=== PATIENT | female | born 1965 | race American Indian/Alaskan Native ===

== ENCOUNTER 2018-06-01 15:10 | Emergency (ER) | payer MEDICAID, OTHER ==
[2018-06-01 15:10] VITALS: BMI 15.5
[2018-06-01 15:18] VITALS: BP 151/91; PULSE 99; RESP 20; TEMP 98.4; O2SAT 97
--- NOTE | 2018-06-01 17:47 | ED PDOC ---
HPI: Psych/Substance Abuse Time Seen by Provider: 06/01/18 15:20 Chief Complaint (Nursing): Alcohol Ingestion Chief Complaint (Provider): Alcohol Ingestion History Per: Patient History/Exam Limitations: no limitations Onset/Duration Of Symptoms: Days (x5 months ago) Additional Complaint(s): Lorin Padilla is a 53 year old female with a past medical history of HTN, who was brought by EMS to the emergency department complaining of generalized weakness, onset x5 months. Patient did admit to drinking alcohol in the morning. She states that she was admitted to [facility] x1 month ago for colitis. Patient reports her abdominal pain and diarrhea have resolved. She denies experiencing any chest pain, shortness of breath, melena, blood per rectum, hematochezia, palpitations, SI, HI, hallucinations or depression. PMD: No provider Past Medical History Reviewed: Historical Data, Nursing Documentation, Vital Signs Vital Signs: Last Vital Signs Temp 98.4 F 06/01/18 15:17 Pulse 99 H 06/01/18 15:17 Resp 20 06/01/18 15:17 BP 151/91 H 06/01/18 15:17 Pulse Ox 97 06/01/18 15:17 - Medical History PMH: Anxiety, Bipolar Disorder, Bronchitis, COPD, Depression, Emphysema, Fractures (left wrist), HIV (?), HTN, Personality Disorder, Pneumonia, Seizures Denies: Chronic Kidney Disease, Sexually Transmitted Disease - Surgical History Surgical History: No Surg Hx - Family History Family History: States: Unknown Family Hx - Immunization History Hx Tetanus Toxoid Vaccination: No Hx Influenza Vaccination: No Hx Pneumococcal Vaccination: No - Home Medications Home Medications: Ambulatory Orders Medication Instructions Recorded Ciprofloxacin HCl [Cipro] 500 mg PO BID #9 tablet 05/21/18 Metronidazole [Flagyl] 500 mg PO Q8 #13 tablet 05/21/18 RX: Folic Acid 1 mg PO DAILY #30 tab 05/21/18 RX: Multivitamins [Hexavitamin] 1 tab PO DAILY #30 tab 05/21/18 RX: Thiamine [Vitamin B1 Tab] 100 mg PO DAILY #30 tab 05/21/18 RX: amLODIPine [Norvasc] 10 mg PO DAILY #30 tab 05/21/18 RX: cloNIDine [Catapres] 0.2 mg PO Q8 #90 tab 05/21/18 - Allergies Allergies/Adverse Reactions: Allergies Allergy/AdvReac Type Severity Reaction Status Date / Time aspirin Allergy ANAPHYLAXIS Verified 06/01/18 15:19 ibuprofen [From Motrin] Allergy SWELLING Verified 06/01/18 15:19 Tomato Allergy Intermediate VOMITING Uncoded 06/01/18 15:19 Review of Systems ROS Statement: Except As Marked, All Systems Reviewed And Found Negative Constitutional: Positive for: Weakness Cardiovascular: Negative for: Chest Pain, Palpitations Respiratory: Negative for: Shortness of Breath Gastrointestinal: Negative for: Melena, Hematochezia, Hematemesis, Other (blood per rectum) Psych: Negative for: Depression, Suicidal ideation (homicideal ideation or hallucinations) Physical Exam - Reviewed Nursing Documentation Reviewed: Yes Vital Signs Reviewed: Yes - Physical Exam Appears: Positive for: Well, No Acute Distress Head Exam: Positive for: ATRAUMATIC, NORMOCEPHALIC Skin: Positive for: Normal Color, Warm, Dry Eye Exam: Positive for: Normal appearance, EOMI, PERRL ENT: Positive for: Normal ENT Inspection. Negative for: Other (alcohol in breath) Neck: Positive for: Normal, Painless ROM, Supple Cardiovascular/Chest: Positive for: Regular Rate, Rhythm Respiratory: Positive for: Normal Breath Sounds. Negative for: Respiratory Distress Gastrointestinal/Abdominal: Positive for: Normal Exam, Bowel Sounds, Soft. Negative for: Tenderness Back: Positive for: Normal Inspection. Negative for: L CVA Tenderness, R CVA Tenderness Extremity: Positive for: Normal ROM. Negative for: Tenderness, Deformity, Swelling Neurologic/Psych: Positive for: Alert, Oriented (x3), Gait (steady). Negative for: Other (slurred speech) - ECG O2 Sat by Pulse Oximetry: 97 (RA) Pulse Ox Interpretation: Normal Medical Decision Making Medical Decision Making: Initial Time: 15:20 Initial plan: --Glucose (POC) Provider initially patient that they will proceed with a head CT, blood work, fluids, however, patient eventually refused blood work and head CT. Patient was originally placed in Psychological room but did not want to be there so was moved to room 13 in the ED. Patient still refused to be seen. Leaving Against Medical Advice (AMA): This patient is choosing to leave against medical advice. I have personally explained to the pt that choosing to do so may result in permanent bodily harm or . I have discussed at great length that without further evaluation and monitoring there may be unforeseen circumstances and/or deterioration causing permanent bodily harm or as a result of their choice. The pt verbalized these risks back to the physician in laymans terms. The pt is alert, oriented, and shows the mental capacity to make clear decisions regarding the pts health care at this time. The pt continues to wish to leave against medical advice. In light of the pts decision to leave AMA, follow-up has been arranged and the pt is aware of the importance of following up as instructed. The pt has been advised that they should return to the ED immediately if they change their mind at any time, or if their condition begins to change or worsen in any way. Scribe Attestation: Documented by Bryon Moss, acting as a scribe for Uziel Stokes Provider Scribe Attestation: All medical record entries made by the Scribe were at my direction and personally dictated by me. I have reviewed the chart and agree that the record accurately reflects my personal performance of the history, physical exam, medical decision making, and the department course for this patient. I have also personally directed, reviewed, and agree with the discharge instructions and disposition. Disposition - Clinical Impression Clinical Impression: Weakness, Left against medical advice - Disposition Referrals: [facility] [Outside] Disposition: Against Medical Advice Disposition Time: 16:43 Condition: STABLE Additional Instructions: LORIN PADILLA, thank you for letting us take care of you today. Your provider was Manuelito Rivera III, DO and you were treated for ETOH. The emergency medical care you received today was directed at your acute symptoms. If you were prescribed any medication, please fill it and take as directed. It may take several days for your symptoms to resolve. Return to the Emergency Department if your symptoms worsen, do not improve, or if you have any other problems. Please contact your doctor or call one of the physicians/clinics you have been referred to that are listed on the Patient Visit Information form that is included in your discharge packet. Bring any paperwork you were given at discharge with you along with any medications you are taking to your follow up visit. Our treatment cannot replace ongoing medical care by a primary care provider outside of the emergency department. Thank you for allowing the [facility] team to be part of your care today. If you had an X-Ray or CT scan: A Radiologist will review the ED reading if any change in treatment is needed we will contact you. If you had a blood, urine, or wound culture: It will take several days for the results, if any change in treatment is needed we will contact you. If you had an STI test: It will take 48 hours for the results. Please call after 1 week if you have not heard back. Instructions: Leaving Against Medical Advice, Weakness (ED) Forms: [employer] (Amharic) Print Language: SAMI
== END 2018-06-01 16:40 | disposition left against medical advice (07) ==
LOC: H.ER 15:10
DX: R53.1 Weakness (principal); F31.9 Bipolar disorder, unspecified; Z88.6 Allergy status to analgesic agent

== ENCOUNTER 2018-07-22 13:32 | Emergency (ER) | payer MEDICAID, OTHER ==
[2018-07-22 13:32] VITALS: BMI 15.5
[2018-07-22 13:43] VITALS: BP 141/89; PULSE 86; RESP 22; TEMP 97.7; O2SAT 99
--- NOTE | 2018-07-22 14:22 | ED PDOC ---
HPI: Psych/Substance Abuse Time Seen by Provider: 07/22/18 13:49 Chief Complaint (Nursing): Alcohol Ingestion Chief Complaint (Provider): Alcohol Ingestion ED Caveat: Intoxicated History Per: Family () History/Exam Limitations: intoxication Additional Complaint(s): 53 y/o female presents to the ED with her for head injury s/p fall prior to arrival. Patient was seen awake and alert yelling in triage however on provider examination patient is asleep and uncooperative. Patient does respond to tactile and verbal stimulus but goes back to sleep. Per , patient has been drinking a lot and today she hit her head prompting ED visit. also reports patient has chest pain, shortness of breath, rectal bleeding, and hallucinations. Review of patient chart indicates that patient was admitted to [facility] [place] on 07/17/18 for chest pain and alcohol intoxication and discharged on the then again returned for admission on 07/20/18 for shortness of breath and was discharged the same day. Patient was also seen in the ED yesterday at [facility] [place] ED complaining of chest pain and headache. Past Medical History Reviewed: Historical Data, Nursing Documentation, Vital Signs Vital Signs: Last Vital Signs Temp 97.7 F 07/22/18 13:36 Pulse 86 07/22/18 13:36 Resp 22 07/22/18 13:36 BP 141/89 07/22/18 13:36 Pulse Ox 99 07/22/18 13:36 - Medical History PMH: Anxiety, Bipolar Disorder, Bronchitis, COPD, Depression, Emphysema, Fractures (left wrist), HIV (?), HTN, Personality Disorder, Pneumonia, Seizures Denies: Chronic Kidney Disease, Sexually Transmitted Disease - Surgical History Surgical History: Tonsillectomy - Family History Family History: States: Unknown Family Hx - Immunization History Hx Tetanus Toxoid Vaccination: No Hx Influenza Vaccination: No Hx Pneumococcal Vaccination: No - Home Medications Home Medications: Ambulatory Orders Medication Instructions Recorded Multivitamins [Hexavitamin] 1 tab PO DAILY #30 tab 05/21/18 Gabapentin 300 mg PO TID #30 capsule 07/19/18 Thiamine [Vitamin B1 Tab] 100 mg PO DAILY #30 tab 07/19/18 amLODIPine [Norvasc] 5 mg PO DAILY #30 tab 07/19/18 cloNIDine [Catapres] 0.1 mg PO BID #60 tab 07/19/18 traZODone [Desyrel] 100 mg PO HS #10 tab 07/19/18 Acetaminophen [Tylenol 325mg tab] 650 mg PO Q6 #20 tab 07/21/18 Cyclobenzaprine [Cyclobenzaprine 10 mg PO TIDPC #14 tab 07/21/18 HCl] - Allergies Allergies/Adverse Reactions: Allergies Allergy/AdvReac Type Severity Reaction Status Date / Time aspirin Allergy ANAPHYLAXIS Verified 07/22/18 13:35 ibuprofen [From Motrin] Allergy SWELLING Verified 07/22/18 13:35 Tomato Allergy Intermediate VOMITING Uncoded 07/22/18 13:35 Review of Systems Review Of Systems: ROS cannot be obtained secondary to pt's inabilty to answer questions. (patient is alseep and unable to wake up due to alcohol intoxication) Physical Exam - Reviewed Nursing Documentation Reviewed: Yes Vital Signs Reviewed: Yes - Physical Exam Appears: Positive for: No Acute Distress (patient is intoxicated and not responsive to verbal stimulus; responds to tactile stimulus) Head Exam: Positive for: ATRAUMATIC, NORMOCEPHALIC Skin: Positive for: Normal Color, Warm, DRY - Laboratory Results Result Diagrams: 07/22/18 14:30 07/22/18 14:30 - ECG O2 Sat by Pulse Oximetry: 99 (RA) Pulse Ox Interpretation: Normal Medical Decision Making Medical Decision Making: Time: 13:50 Initial Impression: Alcohol intoxication Initial Plan: * CT Head w/o contrast * EKG * Alcohol serum * CMP * Troponin * CBC w/ diff 15:34 CT head IMPRESSION: No acute intracranial hemorrhage. 0 - Pt up and out of bed. PT denies complaints at this time and wants to leave. Clear speech and steady gate. ---- Scribe Attestation: Documented by Syed Lynne, acting as a scribe for Celeste Leyva PA-C. Provider Scribe Attestation: All medical record entries made by the Scribe were at my direction and personally dictated by me. I have reviewed the chart and agree that the record accurately reflects my personal performance of the history, physical exam, medical decision making, and the department course for this patient. I have also personally directed, reviewed, and agree with the discharge instructions and disposition. Disposition - Clinical Impression Clinical Impression: Alcohol abuse with intoxication - Patient ED Disposition Is Patient to be Admitted: No Counseled Patient/Family Regarding: Diagnosis, Need For Followup - Disposition Disposition: Routine/Home Disposition Time: 18:19 Condition: GOOD Instructions: Effects of Alcohol on Your Health Forms: [employer] (Mongolian)
[2018-07-22 14:50] LABS: BASO % 0.9 % (0.0-2.0); EOS % 0.9 % (0.0-4.0); HEMOGLOBIN 10.3 g/dL (12.0-16.0); LYMPH # 1.4 K/uL (1.0-4.3); MEAN CELL VOLUME 102.4 fl (81.0-99.0); MEAN CORPUSCULAR HEMOGLOBIN 32.7 pg (27.0-31.0); MEAN PLATELET VOLUME 7.6 fl (7.2-11.7); MONO # 0.2 K/uL (0.0-0.8); MONO % 5.1 % (0.0-10.0); NEUT % 63.1 % (50.0-75.0); NRBC % 0.2 % (0.0-0.0); RBC 3.13 Mil/uL (3.80-5.20); RED CELL DISTRIBUTION WIDTH 15.3 % (11.5-14.5); WHITE BLOOD COUNT 4.7 K/uL (4.8-10.8)
[2018-07-22 15:05] LABS: ALB/GLOB RATIO 1.1 (1.0-2.1); ALBUMIN 4.1 g/dL (3.5-5.0); ALT/SGPT 26 U/L (9-52); AST/SGOT 52 U/L (14-36); BLOOD UREA NITROGEN 27 mg/dl (7-17); CALCIUM 9.3 mg/dL (8.4-10.2); GFR NON-AFRICAN AMERICAN 58
--- NOTE | 2018-07-22 15:38 | CT ---
Date of service: 07/22/2018 PROCEDURE: CT HEAD WITHOUT CONTRAST. HISTORY: fall COMPARISON: Not available TECHNIQUE: Axial computed tomography images were obtained through the head/brain without intravenous contrast. Radiation dose: Total exam DLP = 1828.57 mGy-cm. This CT exam was performed using one or more of the following dose reduction techniques: Automated exposure control, adjustment of the mA and/or kV according to patient size, and/or use of iterative reconstruction technique. FINDINGS: HEMORRHAGE: No intracranial hemorrhage. BRAIN: No mass effect or edema. No significant atrophy. Minimal chronic periventricular white matter ischemic change. VENTRICLES: Unremarkable. No hydrocephalus. CALVARIUM: Unremarkable. PARANASAL SINUSES: Unremarkable as visualized. No significant inflammatory changes. MASTOID AIR CELLS: Unremarkable as visualized. No inflammatory changes. OTHER FINDINGS: None. IMPRESSION: No acute intracranial hemorrhage..
--- NOTE | 2018-07-23 20:04 | CARD ---
APPROVED REPORT Date of service: 07/22/2018 EKG Measurement Heart [id number] <Conclusion> Normal sinus rhythm Minimal voltage criteria for LVH, may be normal variant Prolonged QT Abnormal ECG
== END 2018-07-22 18:26 | disposition home or self-care (01) ==
LOC: H.ER 13:32
DX: F10.129 Alcohol abuse with intoxication, unspecified (principal); S09.90XA Unspecified injury of head, initial encounter; W19.XXXA Unspecified fall, initial encounter; Y92.89 Other specified places as the place of occurrence of the external cause; R07.89 Other chest pain

== ENCOUNTER 2018-09-10 15:54 | Emergency (ER) | payer MEDICAID, OTHER ==
[2018-09-10 15:59] VITALS: BMI 18.9
--- NOTE | 2018-09-10 16:59 | ED PDOC ---
HPI: Psych/Substance Abuse Time Seen by Provider: 09/10/18 16:32 Chief Complaint (Nursing): Alcohol Ingestion Chief Complaint (Provider): Alcohol Ingestion History Per: Patient, EMS History/Exam Limitations: intoxication Severity: Moderate Additional Complaint(s): 53 year old female with a past medical history of alcoholism is brought into the ED by EMS for alcohol ingestion. Patient was found laying down outside in front of a store in [place] with assumed alcohol intoxication. Patient denies alcohol use today, but it noted to have slurred speech and alcohol on her breath. Otherwise, patient denies having any complaints. PMD: None provided. Past Medical History Reviewed: Historical Data, Nursing Documentation, Vital Signs Vital Signs: Last Vital Signs Temp 98.6 F 09/10/18 15:57 Pulse 97 H 09/10/18 15:57 Resp 16 09/10/18 15:57 BP 158/69 H 09/10/18 15:57 Pulse Ox 100 09/10/18 15:57 KIN Report Viewed: Yes - Medical History PMH: Anemia, Anxiety, Bipolar Disorder, Bronchitis, COPD, Depression, Emphysema, Fractures (L wrist), HIV (PT DENIES), HTN, Personality Disorder, Pneumonia, Seizures Denies: Diabetes, Hepatitis, Chronic Kidney Disease, Sexually Transmitted Disease - Surgical History Surgical History: Cholecystectomy (PT DENIES), Tonsillectomy - Family History Family History: States: No Known Family Hx - Social History Current smoker - smoking cessation education provided: Yes Alcohol: > 2 Drinks/Day - Immunization History Hx Tetanus Toxoid Vaccination: No Hx Influenza Vaccination: No Hx Pneumococcal Vaccination: No - Home Medications Home Medications: Ambulatory Orders Medication Instructions Recorded amLODIPine [Norvasc] 5 mg PO DAILY #30 tab 07/19/18 cloNIDine [Catapres] 0.1 mg PO BID #60 tab 07/19/18 traZODone [Desyrel] 100 mg PO HS #10 tab 07/19/18 - Allergies Allergies/Adverse Reactions: Allergies Allergy/AdvReac Type Severity Reaction Status Date / Time aspirin Allergy ANAPHYLAXIS Verified 09/06/18 14:04 ibuprofen [From Motrin] Allergy SWELLING Verified 09/06/18 14:04 Tomato Allergy Intermediate VOMITING Uncoded 09/06/18 14:04 Review of Systems ROS Statement: Except As Marked, All Systems Reviewed And Found Negative Physical Exam - Reviewed Nursing Documentation Reviewed: Yes Vital Signs Reviewed: Yes - Physical Exam Appears: Positive for: Non-toxic, No Acute Distress Head Exam: Positive for: ATRAUMATIC, NORMOCEPHALIC Skin: Positive for: Normal Color, Warm, Dry ENT: Positive for: Other (alcohol on breath) Cardiovascular/Chest: Positive for: Regular Rate, Rhythm Respiratory: Positive for: Normal Breath Sounds Neurologic/Psych: Positive for: Oriented (3x), Other (slurred speech). Negative for: Alert (patient is arousable by painful stimuli) - ECG O2 Sat by Pulse Oximetry: 100 (RA) Pulse Ox Interpretation: Normal Medical Decision Making Medical Decision Makin:32 Initial impression: 53 year old female with alcohol ingestion Initial plan: * alcohol serum * accucheck * reevaluation Scribe Attestation: Documented byBree Plunkett, acting as a scribe for Nick Swann PA-C. Provider Scribe Attestation: All medical record entries made by the Scribe were at my direction and per sonally dictated by me. I have reviewed the chart and agree that the record accurately reflects my personal performance of the history, physical exam, medical decision making, and the department course for this patient. I have also personally directed, reviewed, and agree with the discharge instructions and disposition. Disposition - Clinical Impression Clinical Impression: Alcohol ingestion - Patient ED Disposition Is Patient to be Admitted: No - Disposition Disposition: Routine/Home Disposition Time: 23:40 Condition: FAIR Instructions: Alcohol Poisoning (DC)
[2018-09-11 00:11] VITALS: BP 140/90; PULSE 92; RESP 18; TEMP 98; O2SAT 99
== END 2018-09-11 00:10 | disposition home or self-care (01) ==
LOC: H.ER 15:54
DX: F10.129 Alcohol abuse with intoxication, unspecified (principal); F17.200 Nicotine dependence, unspecified, uncomplicated; I10 Essential (primary) hypertension; Z88.6 Allergy status to analgesic agent

== ENCOUNTER 2018-09-29 01:36 | Emergency (ER) | payer MEDICAID, OTHER ==
[2018-09-29 01:36] VITALS: BMI 18.9
[2018-09-29] MEDS ORDERED: Polymyxin/Trimethoprim Ophth Soln OU STA (02:31)
--- NOTE | 2018-09-29 03:01 | ED PDOC ---
HPI: Eye Injury/Pain Time Seen by Provider: 09/29/18 01:46 Chief Complaint (Nursing): Eye Problem Chief Complaint (Provider): Eye Problem History Per: Patient History/Exam Limitations: no limitations Onset/Duration Of Symptoms: Days (x1) Additional Complaint(s): 53 y/o female presents to the ED complaining of pain to both eyes onset earlier in the morning. Patient states she has pain bilaterally associated with some swelling and discharge which started tonight. Patient notes that light bother her. Past Medical History Reviewed: Historical Data, Nursing Documentation, Vital Signs Vital Signs: Last Vital Signs Temp 98.0 F 09/29/18 01:42 Pulse 96 H 09/29/18 01:42 Resp 17 09/29/18 01:42 BP 148/98 H 09/29/18 01:42 Pulse Ox 98 09/29/18 01:42 - Medical History PMH: Anemia, Anxiety, Bipolar Disorder, Bronchitis, COPD, Depression, Emphysema, Fractures (L wrist), HIV (PT DENIES), HTN, Personality Disorder, Pneumonia, Seizures Denies: Diabetes, Hepatitis, Chronic Kidney Disease, Sexually Transmitted Disease - Surgical History Surgical History: Cholecystectomy (PT DENIES), Tonsillectomy - Family History Family History: States: Unknown Family Hx - Immunization History Hx Tetanus Toxoid Vaccination: No Hx Influenza Vaccination: No Hx Pneumococcal Vaccination: No - Home Medications Home Medications: Ambulatory Orders Medication Instructions Recorded amLODIPine [Norvasc] 5 mg PO DAILY #30 tab 07/19/18 cloNIDine [Catapres] 0.1 mg PO BID #60 tab 07/19/18 traZODone [Desyrel] 100 mg PO HS #10 tab 07/19/18 - Allergies Allergies/Adverse Reactions: Allergies Allergy/AdvReac Type Severity Reaction Status Date / Time aspirin Allergy ANAPHYLAXIS Verified 09/22/18 19:18 ibuprofen [From Motrin] Allergy SWELLING Verified 09/22/18 19:18 Tomato Allergy Intermediate VOMITING Uncoded 09/22/18 19:18 Review of Systems ROS Statement: Except As Marked, All Systems Reviewed And Found Negative Eyes: Positive for: Pain, Vision Change (photophobia), Other (swelling, discharge) Physical Exam - Reviewed Nursing Documentation Reviewed: Yes Vital Signs Reviewed: Yes - Physical Exam Appears: Positive for: Well (generally well; disheveled) Head Exam: Positive for: ATRAUMATIC, NORMAL INSPECTION, NORMOCEPHALIC Skin: Positive for: Normal Color, Warm, DRY Eye Exam: Positive for: EOMI, PERRL, Conjunctival injection (bilateral conjunctival ertythema). Negative for: Normal appearance, Periorbital swelling, Other (erythema, active drainage) Neck: Positive for: Normal, Painless ROM Cardiovascular/Chest: Positive for: Regular Rate, Rhythm. Negative for: Murmur Respiratory: Positive for: Normal Breath Sounds. Negative for: Respiratory Distress Back: Positive for: Normal Inspection Extremity: Positive for: Normal ROM. Negative for: Pedal Edema, Deformity Neurologic/Psych: Positive for: Alert, Oriented. Negative for: Motor/Sensory Deficits - ECG O2 Sat by Pulse Oximetry: 98 (RA) Pulse Ox Interpretation: Normal Medical Decision Making Medical Decision Making: Time: 02:31 A/P: 53 y/o with Conjunctivits. Patient encourage to see Nargis Hammond in the [facility]. * Polytrim Ophth Solution Scribe Attestation: Documented by Syed Lynne acting as a scribe for Kian Akers MD. Provider Scribe Attestation: All medical record entries made by the Scribe were at my direction and personally dictated by me. I have reviewed the chart and agree that the record accurately reflects my personal performance of the history, physical exam, medical decision making, and the department course for this patient. I have also personally directed, reviewed, and agree with the discharge instructions and disposition. Disposition - Clinical Impression Clinical Impression: Conjunctivitis - Disposition Referrals: Rodrigue Hammond MD [Staff Provider] - Disposition: Routine/Home Disposition Time: 02:00 Condition: STABLE Instructions: Conjunctivitis ([place]) Forms: [employer] (Maltese)
[2018-09-29 06:00] VITALS: BP 140/80; PULSE 93; RESP 18; TEMP 97.7; O2SAT 96
== END 2018-09-29 06:16 | disposition home or self-care (01) ==
LOC: H.ER 01:36
DX: H10.9 Unspecified conjunctivitis (principal); I10 Essential (primary) hypertension; Z88.6 Allergy status to analgesic agent

== ENCOUNTER 2018-10-30 19:43 | Emergency (ER) | payer MEDICAID, OTHER ==
[2018-10-30 19:43] VITALS: BMI 18.9
--- NOTE | 2018-10-30 21:34 | ED PDOC ---
HPI: General Adult Time Seen by Provider: 10/30/18 20:02 Chief Complaint (Nursing): Alcohol Ingestion Chief Complaint (Provider): Chest Pain and Numbness History Per: Patient History/Exam Limitations: intoxication Onset/Duration Of Symptoms: Days (x2 months) Current Symptoms Are (Timing): Still Present Additional Complaint(s): 53 year old female with a history of EtOH abuse and hypertension presents to the ED with chest pain and extremity numbness onset x2 months. Patient reports numbness of left four fingers radiating up left arm and bilateral lower extremities for 2 months. She reports double vision for 2 months and admits to drinking alcohol daily. On arrival to ED, patient refused to see PA and was verbally abusive to staff about being in psychiatric room. Staff transferred patient to room 25. Patient now cursing and being inappropriate to staff trying to evaluate her. PMD: Dr. Gusamn Past Medical History Reviewed: Historical Data, Nursing Documentation, Vital Signs Vital Signs: Last Vital Signs Temp 97.8 F 10/30/18 19:45 Pulse 89 10/30/18 19:45 Resp 16 10/30/18 19:45 BP 142/80 10/30/18 19:45 Pulse Ox 100 10/30/18 19:45 - Medical History PMH: Anemia, Anxiety, Bipolar Disorder, Bronchitis, COPD, Depression, Emphysema, Fractures (L wrist), HIV (PT DENIES), HTN, Personality Disorder, Pneumonia, Seizures Denies: Diabetes, Hepatitis, Chronic Kidney Disease, Sexually Transmitted Disease - Surgical History Surgical History: Cholecystectomy (PT DENIES), Tonsillectomy - Family History Family History: States: Unknown Family Hx - Social History Alcohol: Other (daily) - Immunization History Hx Tetanus Toxoid Vaccination: No Hx Influenza Vaccination: No Hx Pneumococcal Vaccination: No - Home Medications Home Medications: Ambulatory Orders Medication Instructions Recorded Unobtainable 10/05/18 - Allergies Allergies/Adverse Reactions: Allergies Allergy/AdvReac Type Severity Reaction Status Date / Time aspirin Allergy ANAPHYLAXIS Verified 10/15/18 22:34 ibuprofen [From Motrin] Allergy SWELLING Verified 10/15/18 22:34 Tomato Allergy Intermediate VOMITING Uncoded 10/15/18 22:34 Review of Systems ROS Statement: Except As Marked, All Systems Reviewed And Found Negative Constitutional: Positive for: Weakness Cardiovascular: Positive for: Chest Pain Neurological: Positive for: Numbness Physical Exam - Reviewed Nursing Documentation Reviewed: Yes Vital Signs Reviewed: Yes - Physical Exam Appears: Positive for: Non-toxic, No Acute Distress Head Exam: Positive for: ATRAUMATIC, NORMOCEPHALIC Skin: Positive for: Normal Color, Warm, Dry Eye Exam: Positive for: Normal appearance, EOMI, PERRL ENT: Positive for: Normal ENT Inspection Neck: Positive for: Normal, Painless ROM, Supple Cardiovascular/Chest: Positive for: Regular Rate, Rhythm. Negative for: Murmur Respiratory: Positive for: Normal Breath Sounds. Negative for: Respiratory Distress Gastrointestinal/Abdominal: Positive for: Normal Exam, Soft. Negative for: Tenderness Back: Positive for: Normal Inspection. Negative for: L CVA Tenderness, R CVA Tenderness Extremity: Positive for: Normal ROM (upper and lower). Negative for: Pedal Edema, Deformity Neurological/Psych: Positive for: Awake, Alert, neurosurgery physician II-XII (intact), Other (patient is noncompliant when asked to move extremities, patient moves extremities at will). Negative for: Motor/Sensory Deficits - Laboratory Results Result Diagrams: 10/30/18 22:20 10/30/18 22:20 Lab Results: 37 bun - ECG ECG: Positive for: Interpreted By Me, Viewed By Me ECG Rhythm: Positive for: Normal QRS, Normal ST Segment, Sinus Rhythm O2 Sat by Pulse Oximetry: 100 (RA) Pulse Ox Interpretation: Normal - Progress ED Course And Treament: 2331: Stable. Dr. Akers to fu on sobriety. Medical Decision Making Medical Decision Making: Time: 2124 Plan: --CT head w/o contrast --EKG --CXR --Tylenol 650 mg PO --Accucheck Time: 2225 CT head w/o contrast: FINDINGS: BRAIN No acute intraparenchymal hemorrhage. No mass lesion. No CT evidence for acute territorial infarct. No midline shift or extra-axial collections. VENTRICLES: No hydrocephalus. ORBITS: The orbits are unremarkable. SINUSES AND MASTOIDS: The paranasal sinuses and mastoid air cells are clear. BONES: No fracture. SOFT TISSUES: Unremarkable. IMPRESSION: No acute intracranial abnormality. ----- Scribe Attestation: Documented by Jocy Carrillo, acting as a scribe for Junior Pozo MD. Provider Scribe Attestation: All medical record entries made by the Scribe were at my direction and personally dictated by me. I have reviewed the chart and agree that the record accurately reflects my personal performance of the history, physical exam, medical decision making, and the department course for this patient. I have also personally directed, reviewed, and agree with the discharge instructions and dis position. Disposition - Clinical Impression Clinical Impression: Alcohol abuse with intoxication, Paresthesia - Patient ED Disposition Is Patient to be Admitted: Transfer of Care - Disposition Disposition: Transfer of Care Disposition Time: 23:33 Condition: STABLE
[2018-10-30 22:25] LABS: BASO % 0.5 % (0.0-2.0); EOS # 0.1 K/uL (0.0-0.7); EOS % 1.2 % (0.0-4.0); HEMOGLOBIN 11.5 g/dL (12.0-16.0); LYMPH % 46.4 % (20.0-40.0); MEAN CELL VOLUME 95.3 fl (81.0-99.0); MEAN CORPUSCULAR HGB CONC 32.5 g/dL (33.0-37.0); MEAN PLATELET VOLUME 7.3 fl (7.2-11.7); MONO # 0.2 K/uL (0.0-0.8); MONO % 4.9 % (0.0-10.0); NRBC % 0.1 % (0.0-0.0); RBC 3.71 Mil/uL (3.80-5.20); RED CELL DISTRIBUTION WIDTH 15.4 % (11.5-14.5); WHITE BLOOD COUNT 4.3 K/uL (4.8-10.8)
[2018-10-30 22:50] LABS: ALB/GLOB RATIO 1.2 (1.0-2.1); ALBUMIN 4.4 g/dL (3.5-5.0); ALT/SGPT 13 U/L (9-52); AST/SGOT 35 U/L (14-36); BLOOD UREA NITROGEN 37 mg/dl (7-17); CALCIUM 9.3 mg/dL (8.4-10.2); GFR NON-AFRICAN AMERICAN 43
--- NOTE | 2018-10-31 | ED PDOC ---
- Laboratory Results Result Diagrams: 10/30/18 22:20 10/30/18 22:20 Lab Results: Troponin I < 0.0120 ng/mL (0.00-0.120) 10/30/18 22: Total Bilirubin 0.2 mg/dl (0.2-1.3) 10/30/18 22:20 AST 35 U/L (14-36) 10/30/18 22:20 ALT 13 U/L (9-52) 10/30/18 22: Alkaline Phosphatase 91 U/L (38-126) 10/30/18 22: Total Protein 8.2 G/DL (6.3-8.2) 10/30/18 22: Albumin 4.4 g/dL (3.5-5.0) 10/30/18: Globulin 3.8 gm/dL (2.2-3.9) 10/30/18 22: Albumin/Globulin Ratio 1.2 (1.0-2.1) 10/30/18 22: - ECG O2 Sat by Pulse Oximetry: 100 (RA) Pulse Ox Interpretation: Normal Medical Decision Making Medical Decision Making: Time: 00:00 Patient care endorsed from Dr. Pozo to provider pending clinical sobriety 2:00 Sleeping comfortably, no distress 4:00 Still sleeping, stable. 6:00 Patient woken up, awake, alert, has steady gait, oriented, has no complaints, stable for discharge Scribe Attestation: Documented by Syed Lynne acting as a scribe for Kian Akers MD. Provider Scribe Attestation: All medical record entries made by the Scribe were at my direction and personally dictated by me. I have reviewed the chart and agree that the record accurately reflects my personal performance of the history, physical exam, medical decision making, and the department course for this patient. I have also personally directed, reviewed, and agree with the discharge instructions and d isposition. Disposition - Clinical Impression Clinical Impression: Alcohol abuse with intoxication, Paresthesia - POA Present On Arrival: None - Disposition Referrals: Alcoholics Anonymous [Outside] Disposition: Routine/Home Disposition Time: 06:00 Condition: IMPROVED Instructions: Alcohol Use - When Is Drinking a Problem? Forms: [employer] [facility] (Dutch)
[2018-10-31 01:34] VITALS: RESP 18
[2018-10-31 06:23] VITALS: BP 143/79; PULSE 74; TEMP 97.9
--- NOTE | 2018-10-31 08:03 | CT ---
Date of service: 10/30/2018 PROCEDURE: CT HEAD WITHOUT CONTRAST. HISTORY: alcohol use COMPARISON: None available. TECHNIQUE: Axial computed tomography images were obtained through the head/brain without intravenous contrast. Radiation dose: Total exam DLP = 870.11 mGy-cm. This CT exam was performed using one or more of the following dose reduction techniques: Automated exposure control, adjustment of the mA and/or kV according to patient size, and/or use of iterative reconstruction technique. FINDINGS: HEMORRHAGE: No intracranial hemorrhage. BRAIN: No mass effect or edema. No atrophy or chronic microvascular ischemic changes. VENTRICLES: Unremarkable. No hydrocephalus. CALVARIUM: Unremarkable. PARANASAL SINUSES: Unremarkable as visualized. No significant inflammatory changes. MASTOID AIR CELLS: Unremarkable as visualized. No inflammatory changes. OTHER FINDINGS: None. IMPRESSION: Normal CT of the Head.
--- NOTE | 2018-10-31 08:33 | RAD ---
Date of service: 10/30/2018 HISTORY: chest pain COMPARISON: No prior. FINDINGS: LUNGS: No active pulmonary disease. PLEURA: No significant pleural effusion identified, no pneumothorax apparent. CARDIOVASCULAR: No aortic atherosclerotic calcification present. Normal cardiac size. No pulmonary vascular congestion. OSSEOUS STRUCTURES: No significant abnormalities. VISUALIZED UPPER ABDOMEN: Normal. OTHER FINDINGS: None. IMPRESSION: No active disease.
[2018-10-31 20:01] VITALS: O2SAT 100
--- NOTE | 2018-10-31 20:05 | CARD ---
APPROVED REPORT Date of service: 10/30/2018 EKG Measurement Heart [id number] <Conclusion> Sinus rhythm with occasional premature ventricular complexes Voltage criteria for left ventricular hypertrophy Prolonged QT Abnormal ECG
== END 2018-10-31 06:34 | disposition home or self-care (01) ==
LOC: H.ER 19:43
DX: F10.129 Alcohol abuse with intoxication, unspecified (principal); R20.2 Paresthesia of skin; I10 Essential (primary) hypertension; Z88.6 Allergy status to analgesic agent

== ENCOUNTER 2018-12-30 02:59 | Emergency (ER) | payer SELFPAY ==
[2018-12-30 03:19] VITALS: TEMP 98
[2018-12-30] MEDS ORDERED: Sodium Chloride 0.9% 1,000 ML IV STA (03:55)
--- NOTE | 2018-12-30 03:58 | ED PDOC ---
HPI: Abdomen Time Seen by Provider: 12/30/18 03:22 Chief Complaint (Nursing): GI Problem Chief Complaint (Provider): abdominal pain History Per: Patient History/Exam Limitations: no limitations Onset/Duration Of Symptoms: Days (1) Current Symptoms Are (Timing): Still Present Location Of Pain/Discomfort: Epigastric Associated Symptoms: Nausea, Vomiting Additional Complaint(s): 61 y/o female presents for evaluation of upper abdominal pain x 1 day. Associated nausea/vomiting. Patient states she has been unable to keep food/liquids down currently. Denies fever, chest pain, shortness of breath, palpitations, urinary symptoms, recent travel, sick contacts. Patient reports drinking alcohol today, states she drinks every day. Past Medical History Reviewed: Historical Data, Nursing Documentation, Vital Signs Vital Signs: Last Vital Signs Temp 98.0 F 12/30/18 03:09 Pulse 77 12/30/18 03:09 Resp 16 12/30/18 03:09 BP 147/97 H 12/30/18 03:09 Pulse Ox 96 12/30/18 03:09 Primary Care Provider: FAMILY PROVIDER,NO - Medical History PMH: COPD, HTN - Surgical History Other surgeries: hysterectomy. abdominal sx (for peptic ulcer?) - Family History Family History: States: No Known Family Hx - Allergies Allergies/Adverse Reactions: Allergies Allergy/AdvReac Type Severity Reaction Status Date / Time No Known Allergies Allergy Verified 12/30/18 03:20 Review of Systems ROS Statement: Except As Marked, All Systems Reviewed And Found Negative Gastrointestinal: Positive for: Nausea, Vomiting, Abdominal Pain Physical Exam - Reviewed Nursing Documentation Reviewed: Yes Vital Signs Reviewed: Yes - Physical Exam Appears: Positive for: Well, Non-toxic, Uncomfortable Head Exam: Positive for: ATRAUMATIC, NORMAL INSPECTION, NORMOCEPHALIC Skin: Positive for: Normal Color Eye Exam: Positive for: Normal appearance ENT: Positive for: Normal ENT Inspection Cardiovascular/Chest: Positive for: Regular Rate, Rhythm Respiratory: Positive for: Normal Breath Sounds Gastrointestinal/Abdominal: Positive for: Bowel Sounds, Soft, Tenderness (epig astric) Back: Positive for: Normal Inspection Extremity: Positive for: Normal ROM Neurological/Psych: Positive for: Awake, Alert, Oriented (x3) - ECG ECG: Positive for: Viewed By Me (reviewed by ED attending) ECG Rhythm: Positive for: Sinus Rhythm O2 Sat by Pulse Oximetry: 96 - Radiology X-Ray: Viewed By Me X-Ray Interpretation: No Acute Disease - Progress ED Course And Treament: -cbc -cmp -lipase -alcohol -urinalysis -ekg -cxr -IV NS bolus -IV zofran -IV pepcid Disposition - Clinical Impression Clinical Impression: Abdominal pain - Patient ED Disposition Is Patient to be Admitted: No - Disposition Disposition Time: 05:00 Condition: STABLE Patient Signed Over To: Rome Flores Handoff Comments: pending labs, re-eval
[2018-12-30] MEDS ORDERED: Alum-Mag Hydrox-Simethicone Susp (30 mL) PO STA (05:44)
[2018-12-30 05:50] LABS: BASO % 0.8 % (0.0-2.0); HEMOGLOBIN 11.6 g/dL (12.0-16.0); LYMPH # 0.9 K/uL (1.0-4.3); LYMPH % 32.6 % (20.0-40.0); MEAN CELL VOLUME 97.4 fl (81.0-99.0); MEAN CORPUSCULAR HEMOGLOBIN 32.7 pg (27.0-31.0); MEAN CORPUSCULAR HGB CONC 33.6 g/dL (33.0-37.0); MEAN PLATELET VOLUME 6.7 fl (7.2-11.7); MONO # 0.2 K/uL (0.0-0.8); MONO % 8.5 % (0.0-10.0); NEUT # 1.5 K/uL (1.8-7.0); NEUT % 57.1 % (50.0-75.0); RBC 3.55 Mil/uL (3.80-5.20); RED CELL DISTRIBUTION WIDTH 16.3 % (11.5-14.5); WHITE BLOOD COUNT 2.7 K/uL (4.8-10.8)
[2018-12-30] MEDS ORDERED: Atrop/Hyos/Scop/PhenoB Elixir PO STA (05:51)
[2018-12-30 05:59] LABS: ALB/GLOB RATIO 1.3 (1.0-2.1); ALBUMIN 4.5 g/dL (3.5-5.0); ALT/SGPT 28 U/L (9-52); AST/SGOT 71 U/L (14-36); BLOOD UREA NITROGEN 17 mg/dl (7-17); CALCIUM 9.1 mg/dL (8.4-10.2); GFR NON-AFRICAN AMERICAN > 60; LIPASE 146 U/L (23-300)
[2018-12-30 06:03] LABS: SQUAMOUS EPITHIAL 1 /hpf (0-5); URINE BILIRUBIN NEGATIVE (NEGATIVE); URINE BLOOD SMALL (NEGATIVE); URINE CLARITY CLEAR (Clear); URINE COLOR STRAW (YELLOW); URINE GLUCOSE (UA) NEG (NEGATIVE); URINE LEUKOCYTE ESTERASE NEG Leu/uL (Negative); URINE PROTEIN NEGATIVE (NEGATIVE); URINE UROBILINOGEN 0.2-1.0 mg/dL (0.2-1.0)
[2018-12-30] MEDS ORDERED: Iohexol 240 (50 ml) PO ONE (06:12)
[2018-12-30] MEDS ORDERED: Iohexol 240 (50 ml) ONE (06:35)
--- NOTE | 2018-12-30 07:49 | RAD ---
Date of service: 12/30/2018 HISTORY: cough COMPARISON: No prior. TECHNIQUE: 1 view obtained. FINDINGS: LUNGS: No active pulmonary disease. PLEURA: No significant pleural effusion identified, no pneumothorax apparent. CARDIOVASCULAR: Calcific atherosclerotic changes are seen related to the thoracic aorta. Normal cardiac size. No pulmonary vascular congestion. OSSEOUS STRUCTURES: No significant abnormalities. VISUALIZED UPPER ABDOMEN: Normal. OTHER FINDINGS: None. IMPRESSION: No acute cardiopulmonary disease appreciated.
[2018-12-30] MEDS ORDERED: Iohexol 300 100 ML IJ ONE (09:11)
[2018-12-30] MEDS ORDERED: Sodium Chloride 0.9% 50 ML IV ONE (09:12)
--- NOTE | 2018-12-30 11:26 | CARD ---
APPROVED REPORT Date of service: 12/30/2018 EKG Measurement Heart [id number] <Conclusion> Normal sinus rhythm Moderate voltage criteria for LVH, may be normal variant Borderline ECG
--- NOTE | 2018-12-30 11:37 | CT ---
Date of service: 12/30/2018 PROCEDURE: CT Abdomen and Pelvis with contrast HISTORY: Abdominal pain COMPARISON: None available. TECHNIQUE: CT scan of the abdomen and pelvis was performed after administration of intravenous contrast. Oral contrast was administered. Coronal and sagittal reformatted images were obtained. Contrast dose: 95 mL Omnipaque 300 Radiation dose: Total exam DLP = 297.54 mGy-cm. This CT exam was performed using one or more of the following dose reduction techniques: Automated exposure control, adjustment of the mA and/or kV according to patient size, and/or use of iterative reconstruction technique. FINDINGS: LOWER THORAX: The visualized lungs are clear. LIVER: Mild hepatomegaly and fatty liver. Normal homogeneous enhancement. No gross lesion or ductal dilatation. GALLBLADDER AND BILE DUCTS: Well distended. No calcified gallstones, wall thickening or pericholecystic fluid. PANCREAS: Normal in size with homogeneous enhancement. No gross lesion or ductal dilatation. SPLEEN: Normal in size and appearance. ADRENALS: No discrete nodule. KIDNEYS AND URETERS: Normal in size with homogeneous enhancement. No hydronephrosis. No solid mass. VASCULATURE: No aortic aneurysm. There are early aortic atherosclerotic calcifications and mural plaques present. BOWEL: Evaluation of the bowel is limited in the absence of oral contrast. There is apparent mild circumferential mural thickening and dilatation of the proximal small bowel loops. The mid and distal small bowel loops are normal in caliber. The ileocecal junction is normal. There is moderate amount of stool in the colon. There also apparent circumferential mural thickening in the ascending and left hemicolon. APPENDIX: Normal appendix. PERITONEUM: No free fluid. No free air. LYMPH NODES: No enlarged lymph nodes. BLADDER: Well distended and normal in appearance. REPRODUCTIVE: The uterus is normal in size and deviated to the left. BONES: No acute fracture. Within normal limits for the patient's age. OTHER FINDINGS: None. IMPRESSION: 1. Segmental dilatation and circumferential mural thickening in the proximal small bowel loops and apparent mild circumferential mural thickening in the ascending and left hemicolon may represent acute nonspecific infectious/inflammatory enteritis and colitis in the appropriate clinical setting. No bowel obstruction. 2. Mild hepatomegaly and fatty liver.
--- NOTE | 2018-12-30 13:48 | ED PDOC ---
- Laboratory Results Result Diagrams: 12/30/18 05:42 12/30/18 05:42 Lab Results: Total Bilirubin 0.3 mg/dl (0.2-1.3) 12/30/18 05:42 AST 71 U/L (14-36) H 12/30/18 05:42 ALT 28 U/L (9-52) 12/30/18 05:42 Alkaline Phosphatase 80 U/L (38-126) 12/30/18 05:42 Total Protein 8.0 G/DL (6.3-8.2) 12/30/18 05:42 Albumin 4.5 g/dL (3.5-5.0) 12/30/18 05:42 Globulin 3.5 gm/dL (2.2-3.9) 12/30/18 05:42 Albumin/Globulin Ratio 1.3 (1.0-2.1) 12/30/18 05:42 Lipase 146 U/L (23-300) 12/30/18 05:42 Urine Color Straw (YELLOW) 12/30/18 05:55 Urine Clarity Clear (Clear) 12/30/18 05:55 Urine pH 6.0 (5.0-8.0) 12/30/18 05:55 Ur Specific [place] 1.006 (1.003-1.030) 12/30/18 05:55 Urine Protein Negative mg/dL (NEGATIVE) 12/30/18 05:55 Urine Glucose (UA) Neg mg/dL (NEGATIVE) 12/30/18 05:55 Urine Ketones Negative mg/dL (NEGATIVE) 12/30/18 05:55 Urine Blood Small (NEGATIVE) 12/30/18 05:55 Urine Nitrate Negative (NEGATIVE) 12/30/18 05:55 Urine Bilirubin Negative (NEGATIVE) 12/30/18 05:55 Urine Urobilinogen 0.2-1.0 mg/dL (0.2-1.0) 12/30/18 05:55 Ur Leukocyte Esterase Neg [place]/uL (Negative) 12/30/18 05:55 Urine RBC (Auto) 1 /hpf (0-3) 12/30/18 05:55 Urine Microscopic WBC 1 /hpf (0-5) 12/30/18 05:55 Ur Squamous Epith Cells 1 /hpf (0-5) 12/30/18 05:55 - ECG O2 Sat by Pulse Oximetry: 97 - Progress Re-evaluation Time: 13:46 Condition: Re-examined (Pt states epigastric pain but no vomiting or diarrhea. Pt observed and does not have tremors when provider not in room. ) Medical Decision Making Medical Decision Making: Pt is not tacchycardic or diaphoretic. Awake alert oriented x 3 No tremors noted when observed from entrance to room. CT abd/pelvis nonspecific enteritis Disposition - Clinical Impression Clinical Impression: Abdominal pain, Gastritis - POA Present On Arrival: None - Disposition Referrals: [facility] [Outside] Disposition: Routine/Home Disposition Time: 13:51 Condition: STABLE Prescriptions: chlordiazePOXIDE [Chlordiazepoxide HCl] 25 mg PO Q8 #9 cap Esomeprazole Magnesium [Nexium] 20 mg PO QAM #14 ecc Instructions: Gastritis Forms: [facility] (Khmer)
[2018-12-30 14:01] VITALS: BP 185/102; PULSE 79; RESP 18; O2SAT 99
== END 2018-12-30 14:30 | disposition home or self-care (01) ==
LOC: MERGE 02:59 → EDBD 02:59 → H.ER 02:59
DX: K29.70 Gastritis, unspecified, without bleeding (principal); I10 Essential (primary) hypertension
CPT/HCPCS: 71045; 74177; 80053; 81003; 83690; 85025; 93005; 96374; 96375; 99285; G0480; J2270; J2405; J7030; Q9966; Q9967

== ENCOUNTER 2019-01-05 14:07 | Emergency (ER) | payer SELFPAY ==
[2019-01-05 14:07] VITALS: BMI 18.9
[2019-01-05 14:13] VITALS: BP 203/115; PULSE 110; RESP 20; TEMP 98.2; O2SAT 100
== END 2019-01-05 14:48 | disposition left against medical advice (07) ==
LOC: H.ER 14:07
DX: Z02.89 Encounter for other administrative examinations (principal)